=== PATIENT | male | born 1980 | race Caucasian/White ===

== ENCOUNTER → 2017-10-05 | Outpatient (CLI) | payer BC ==
--- NOTE | 2017-10-05 16:57 | CT ---
EXAMINATION TYPE: CT chest w con DATE OF EXAM: 10/05/2017 COMPARISON: NONE HISTORY: Soft tissue mass right lower chest marked by BB. CT DLP: 438.8 mGycm Automated exposure control for dose reduction was used. CONTRAST: CT scan of the chest is performed with IV Contrast, patient injected with 100 mL of Omnipaque 300. FINDINGS: The heart and mediastinum appear normal. There is no mediastinal adenopathy. There are right bronchia l lymph nodes that measure up to 1 cm. Heart size is normal. There is no pericardial effusion. There are small linear density in the anterior right middle lobe. There is no pleural effusion. There is no evidence of a pulmonary mass. There is subsegmental minimal atelectasis at the posterior lung bases. The bony thorax is intact. There is a metal marker on the lateral right anterior upper abdomen . I see no discrete abdominal wall mass. There is no evidence of chest wall mass. The ribs appear int act.. IMPRESSION: Negative CT scan of the chest. No evidence of a soft tissue chest wall mass. Minimal sub segmental atelectasis at the lung bases.
== END | disposition home or self-care (01) ==
LOC: RADCTMAIN 16:19
PROVIDERS: ATTEND Family Medicine
DX: J98.11 Atelectasis (principal)
CPT/HCPCS: 71260; Q9967

== ENCOUNTER → 2017-10-30 | Outpatient (CLI) | payer BC ==
--- NOTE | 2017-10-31 07:10 | US ---
EXAMINATION TYPE: US chest DATE OF EXAM: 10/30/2017 COMPARISON: CT CLINICAL HISTORY: R22.2 Chest mass. EXAM MEASUREMENTS: Patient had a chest x-ray that showed a mass (outside), he then had a CT here that did not show a aiyana st mass. He has a an area of pain where he feels the rib may be being pushed out. Branch Assistant scanned this are a, no masses seen. IMPRESSIONS: No solid or cystic mass seen over the areas scanned.
== END | disposition home or self-care (01) ==
LOC: RADUSWWP 16:06
PROVIDERS: ATTEND Family Medicine
DX: R22.2 Localized swelling, mass and lump, trunk (principal)

== ENCOUNTER → 2018-01-07 | Outpatient (CLI) | payer BC ==
--- NOTE | 2018-01-07 09:22 | NM ---
EXAMINATION TYPE: NM hepatobiliary w CCK DATE OF EXAM: 01/07/2018 COMPARISON: NONE HISTORY: Right upper quadrant pain TECHNIQUE: After the intravenous administration of 5.3 mCi Tc 99m Mebrofenin hepatobiliary scintigrap hy is performed. Immediate images post injection. FINDINGS: There is satisfactory initial accumulation of tracer by the liver. The gallbladder is visualized on the initial images at 0 seconds. The small bowel activity is noted within 2 minutes. At one hour CC K was administered, patient was injected with 1.9 mcg of Kinevac, and gallbladder ejection fraction i s calculated at 81 %, elevated. Therefore there is no scintigraphic evidence of cystic or common [place] e duct obstruction to suggest acute cholecystitis or gallbladder dyskinesia. IMPRESSION: 1. Biliary hyperkinesis with elevated ejection fraction. 2. No scintigraphic evidence of acute or chronic cholecystitis.
== END | disposition home or self-care (01) ==
LOC: RADNMMAIN 06:42
PROVIDERS: ATTEND Surgery
DX: K83.8 Other specified diseases of biliary tract (principal)
CPT/HCPCS: 78227; A9537; J2805

== ENCOUNTER 2018-01-23 06:47 | Day surgery (SDC) | payer BC ==
[2018-01-21 15:40] VITALS: BMI 30.1
[~2018-01-23 06:47] MED LIST: DEXAMETHASONE SOD PHOSPHATE 10 MG/ML 1 ML VIAL IV ONE; HEPARIN SODIUM,PORCINE 5,000 UNIT/ML 1 ML VIAL SQ ONE; LACTATED RINGERS 1,000 ML IV SCH; LIDOCAINE 1% 20 ML VIAL (10MG/ML) FOR IV START INTRADERMA PRN; MIDAZOLAM 2 MG/2 ML VIAL IV PRN; ONDANSETRON ODT 4 MG TAB PO ONE; SCOPOLAMINE 1.5MG/72HR PATCH TRANSDERM ONE; ceFAZolin IN SWFI 2 GM/20 ML SYRINGE IVP ONE; fentaNYL (PF) 50 MCG/ML 2 ML AMP IV PRN
[2018-01-23] MEDS ORDERED: BUPIVACAINE (PF) 0.25% 30 ML VIAL SQ ONE (07:23)
[2018-01-23] MEDS ORDERED: ONDANSETRON 4 MG/2 ML VIAL IVP ONE ×2 (07:36→09:02)
--- NOTE | 2018-01-23 07:47 | P.GSHP ---
History of Present Illness H&P Date: 01/23/18 Chief Complaint: Right upper quadrant pain This is a 29-year-old male referred from phill Crump PA-C. Patient has complaints of right upper quadrant pain. His recent HIDA scan shows evidence of elevated ejection fraction biliary hypokinesis. Patient presents today for laparoscopic cholecystectomy Past Medical History Past Medical History: No Reported History History of Any Multi-Drug Resistant Organisms: None Reported Past Surgical History: Orthopedic Surgery Additional Past Surgical History / Comment(s): L Shoulder scope x 2 Past Anesthesia/Blood Transfusion Reactions: No Reported Reaction Smoking Status: Current every day smoker - Past Family History Mother Family Medical History: No Reported History Medications and Allergies Home Medications Medication Instructions Recorded Confirmed Type Acetaminophen [Tylenol] 325 mg PO Q4H PRN 01/21/18 01/23/18 History Allergies Allergy/AdvReac Type Severity Reaction Status Date / Time No Known Allergies Allergy Verified 01/23/18 07:10 Surgical - Exam Vital Signs Temp Pulse Resp BP Pulse Ox 97.6 F 67 16 131/71 96 01/23/18 07:05 01/23/18 07:05 01/23/18 07:05 01/23/18 07:05 01/23/18 07:05 - General well developed, no distress - Eyes PERRL - ENT normal pinna - Neck no masses - Respiratory normal expansion - Cardiovascular Rhythm: regular - Abdomen Abdomen: soft, non tender Assessment and Plan Assessment: Chronic cholecystitis Abnormal HIDA scan We'll perform laparoscopic cholecystectomy.
[2018-01-23] MEDS ORDERED: NEOSTIGMINE 1 MG/ML 10 ML VIAL ONE (07:49)
[2018-01-23] MEDS ORDERED: SUCCINYLCHOLINE CHLORIDE 100 MG/5 ML SYR IV ONE (07:49)
[2018-01-23] MEDS ORDERED: ROCURONIUM BROMIDE 10 MG/ML 10 ML VIAL IV ONE (07:49)
[2018-01-23] MEDS ORDERED: fentaNYL (PF) 50 MCG/ML 2 ML AMP ONE (07:49)
[2018-01-23] MEDS ORDERED: GLYCOPYRROLATE 0.2 MG/ML 2 ML VIAL ONE (07:49)
[2018-01-23] MEDS ORDERED: MIDAZOLAM 2 MG/2 ML VIAL ONE (07:49)
[2018-01-23] MEDS ORDERED: KETOROLAC 30 MG/ML 1 ML VIAL ONE (07:49)
[2018-01-23] MEDS ORDERED: PROPOFOL 10 MG/ML 20 ML VIAL IV ONE (07:49)
[2018-01-23] MEDS ORDERED: LIDOCAINE 1% INJ 10MG/ML (20 ML MDV) ONE (07:49)
[2018-01-23] MEDS ORDERED: LACTATED RINGERS 1,000 ML IV ONE (08:51)
--- NOTE | 2018-01-23 08:54 | P.OP ---
Date of Procedure: 01/23/18 Preoperative Diagnosis: Chronic cholecystitis Postoperative Diagnosis: Chronic cholecystitis Procedure(s) Performed: Laparoscopic cholecystectomy Anesthesia: CHRISTINA Surgeon: Alex Farley Estimated Blood Loss (ml): 5 Pathology: other (All bladder) Condition: stable (gallbladder) Disposition: PACU Description of Procedure: The patient was placed on the operating table. The patient received a general endotracheal tube anesthesia. The patients abdomen was prepped and draped in the usual sterile fashion. Through an infraumbilical stab incision, the fascia of the anterior abdominal wall was grasped with a pair of Kochers and then the Veress needle was placed in the peritoneal cavity. Position of the Veress needle was confirmed with positive drop test. The abdomen was then insufflated. After adequate insufflation, the 10 mm trocar was placed in the peritoneal cavity. Following this the laparoscope was placed in the peritoneal cavity. The patient was placed in the head-up, right side up position and then a 5 mm trocar was placed in the right lateral and right subcostal position under direct visualization. A 8 mm trocar was placed in the epigastric position. The gallbladder was grasped in the fundus and infundibulum. Traction on the gallbladder was placed in the lateral and the cephalad positions. The triangle of Calot was visualized.. The cystic duct was bluntly dissected until the union of the cystic duct and common bile duct was seen. The cystic duct was then divided and sealed with the Harmonic scissors. A PDS Endoloop was then placed throughout the cystic duct stump. The cystic artery divided and sealed with the Harmonic scissors. The gallbladder was then removed from the liver bed using Harmonic scissors. The gallbladder was then extracted through the epigastric port site. Operative field was checked for any bleeding spots and Harmonic scissors was used to coagulate the liver bed. The abdomen was irrigated. The trocars were removed. The skin was closed using interrupted 3-0 Vicryl suture. Dermabond dressing were applied. The patient tolerated the procedure well.
[2018-01-23] MEDS ORDERED: MORPHINE SULFATE 4 MG/ML SYRINGE IVP ONE (09:02)
[2018-01-23 09:06] VITALS: TEMP 96.8
[2018-01-23] MEDS ORDERED: diphenhydrAMINE 50 MG/ML 1 ML VIAL IVP ONE (09:08)
[2018-01-23] MEDS ORDERED: fentaNYL (PF) 50 MCG/ML 2 ML AMP IVP ONE ×2 (09:13→09:19)
[2018-01-23 09:14] VITALS: RESP 16
[2018-01-23 10:10] VITALS: BP 134/81; PULSE 64
[2018-01-23] MEDS ORDERED: HYDROcodone/APAP 7.5-325MG 1 EACH TAB PO ONE (10:16)
== END 2018-01-23 10:47 | disposition home or self-care (01) ==
LOC: OR 06:47
PROVIDERS: ATTEND Surgery
DX: K81.1 Chronic cholecystitis (principal); F17.210 Nicotine dependence, cigarettes, uncomplicated
CPT/HCPCS: 88304; 47562; J2250; J2270; J1200; J1644; J1100; J2710; J2405; J2001; J3010; J1885; J0330; J2704; J0690

== ENCOUNTER 2025-03-17 10:28 | Day surgery (SDC) | payer BC, OTHER ==
[2025-03-13 14:23] VITALS: BMI 29.2
[~2025-03-17 10:28] MED LIST changes: -DEXAMETHASONE SOD PHOSPHATE 10 MG/ML 1 ML VIAL IV ONE; -HEPARIN SODIUM,PORCINE 5,000 UNIT/ML 1 ML VIAL SQ ONE; -LACTATED RINGERS 1,000 ML IV SCH; +LIDOCAINE 1% (10MG/ML) FOR IV START INTRADERMA PRN; -LIDOCAINE 1% 20 ML VIAL (10MG/ML) FOR IV START INTRADERMA PRN; -MIDAZOLAM 2 MG/2 ML VIAL IV PRN; +ONDANSETRON 4 MG/2 ML VIAL IVP PRN; -ONDANSETRON ODT 4 MG TAB PO ONE; -SCOPOLAMINE 1.5MG/72HR PATCH TRANSDERM ONE; -ceFAZolin IN SWFI 2 GM/20 ML SYRINGE IVP ONE; -fentaNYL (PF) 50 MCG/ML 2 ML AMP IV PRN
[2025-03-17 11:00] VITALS: TEMP 98.7
[2025-03-17] MEDS: IV FLUID CONTINUATION 1,000 ML IV ONE (11:10)
[2025-03-17] MEDS: LACTATED RINGERS 1,000 ML IV SCH (11:11)
[2025-03-17] MEDS ORDERED: PROPOFOL 10 MG/ML 20 ML VIAL IV ONE (12:19)
--- NOTE | 2025-03-17 12:33 | P.PCN ---
Date of Procedure: 03/17/25 Procedure(s) Performed: BRIEF HISTORY: Patient is a 44-year-old pleasant white male scheduled for an elective colonoscopy as a part of evaluation of positive Cologuard/screening for colon cancer. PROCEDURE PERFORMED: Colonoscopy. PREOPERATIVE DIAGNOSIS: Positive Cologuard and screening for colon cancer. IV sedation per Anesthesia. PROCEDURE: After informed consent was obtained, the patient, was brought into the endoscopy unit. IV sedation was administered by Anesthesia under continuous monitoring. Digital rectal examination was normal. Initially the Olympus CF-160 flexible video colonoscope was then inserted in the rectum, gradually advanced into the cecum without any difficulty. Careful examination was performed as the scope was gradually being withdrawn. Ileocecal valve and the appendiceal orifice were visualized and appeared normal. Prep was fair.. Mucosa of the cecum and sticky stool that was irrigated. No polyps identified. Mucosa, ascending colon, transverse colon, descending colon, sigmoid colon, and rectum appeared normal. Retroflexion was performed in the rectum and no lesions were seen. The patient tolerated the procedure well. IMPRESSION: Normal-appearing colon from rectum to cecum evidence of colorectal neoplasia. RECOMMENDATIONS: Findings of this examination were discussed with the patient as well as his family.. He was advised to have repeat screening colonoscopy in 10 years.
[2025-03-17 12:42] VITALS: RESP 16
[2025-03-17 13:03] VITALS: BP 103/62; PULSE 85
== END 2025-03-17 13:10 | disposition home or self-care (01) ==
LOC: ORWHC2ENDO 10:28
PROVIDERS: ATTEND Internal Medicine Gastroenterology
DX: R19.5 Other fecal abnormalities (principal); I10 Essential (primary) hypertension; F17.200 Nicotine dependence, unspecified, uncomplicated; Z79.899 Other long term (current) drug therapy
CPT/HCPCS: 45378; J2704